=== PATIENT | male | born 1975 | race Asian ===

== ENCOUNTER 2016-09-08 09:49 | Inpatient (IN) | payer OTHER ==
[~2016-09-08] VITALS: Ht 154.9 cm; Wt 61.7 kg
[2016-09-08] MEDS ORDERED: SODIUM CHLORIDE 0.9% 1,000ML IVBOLUS ONE (10:30)
[2016-09-08] MEDS ORDERED: SODIUM CHLORIDE FLUSH 10ML SYR IVF ONE (10:30)
[2016-09-08 11:08] LABS: BLOOD UREA NITROGEN 17 mg/dL (7-18)
[2016-09-08 11:13] LABS: IS PT STATUS REG ER OR PRE ER? YES
[2016-09-08 11:24] LABS: ANISOCYTOSIS 1+; MICROCYTOSIS 2+; OVALOCYTES 1+; POIKILOCYTOSIS 1+
[2016-09-08 11:25] LABS: LARGE PLATELETS 1+
[2016-09-08 11:30] VITALS: BP 155/117
[2016-09-08] MEDS ORDERED: MORPHINE SULFATE 4 MG/ML, 1ML IVPush PRN (12:30)
[2016-09-08] MEDS ORDERED: BISACODYL 10 MG SUPP PR PRN (12:30)
[2016-09-08] MEDS ORDERED: ENALAPRILAT 1.25 MG/ML, 2ML IVPush PRN (12:30)
[2016-09-08] MEDS ORDERED: DOCUSATE 100 MG CAPSULE PO PRN (12:30)
[2016-09-08] MEDS ORDERED: HYDROcodone/APAP 5/325 TABLET PO PRN (12:30)
[2016-09-08] MEDS ORDERED: ONDANSETRON 2MG/ML, 2ML IVP PRN (12:30)
[2016-09-08] MEDS ORDERED: ACETAMINOPHEN 325 MG TABLET PO PRN (12:30)
[2016-09-08] MEDS ORDERED: POLYETHYLENE GLYCOL 17 GM PACKET PO PRN (12:30)
[2016-09-08 13:24] LABS: IS PT STATUS REG ER OR PRE ER? YES
[2016-09-08 13:30] VITALS: BP 155/117
[2016-09-08] MEDS: ENOXAPARIN 40 MG/0.4 ML SQ SCH (13:54)
[2016-09-08] MEDS: SODIUM CHLORIDE 0.9% 1,000 ML IV SCH ×2 (13:55→23:40)
[2016-09-08] MEDS ORDERED: CYANOCOBALAMIN 1,000 MCG/ML, 1ML IM ONE (14:30)
[2016-09-08 15:02] VITALS: BP 129/86
[2016-09-08 18:24] VITALS: BP 134/87
[2016-09-08 20:26] LABS: IS PT STATUS REG ER OR PRE ER? NO
[2016-09-09 01:10] VITALS: BP 152/97
[2016-09-09 06:24] LABS: BLOOD UREA NITROGEN 15 mg/dL (7-18)
[2016-09-09 07:31] VITALS: BP 163/99
[2016-09-09] MEDS ORDERED: REGADENOSON 0.4 MG/5 ML SYRINGE ONE (09:37)
[2016-09-09] MEDS: ENOXAPARIN 40 MG/0.4 ML SQ SCH (12:30)
[2016-09-09] MEDS ORDERED: CYAN10005 IM (14:09)
[2016-09-09] MEDS ORDERED: LISI-167 PO (14:09)
[2016-09-09 14:57] VITALS: BP 180/99
[2016-09-09] MEDS ORDERED: CYANOCOBALAMIN 1,000 MCG/ML, 1ML IM ONE (15:30)
== END 2016-09-09 17:00 | disposition home or self-care (01) | DRG 74 ==
LOC: ED 10:15 → EDIP 11:49 → 5SO 13:27
PROVIDERS: ADMIT Internal Medicine; ATTEND Internal Medicine
DX: G90.8 Other disorders of autonomic nervous system (principal); I16.9 Hypertensive crisis, unspecified; E86.9 Volume depletion, unspecified; E53.8 Deficiency of other specified B group vitamins; R00.0 Tachycardia, unspecified; R73.9 Hyperglycemia, unspecified; I11.9 Hypertensive heart disease without heart failure; Z82.49 Family history of ischemic heart disease and other diseases of the circulatory system
CPT/HCPCS: 36415; 70450; 71010; 78452; 80048; 82040; 82607; 82728; 82746; 83540; 83550; 84443; 84466; 84484; 85025; 85045; 85379; 93005; 93017; 93306; 93880; 96360; 96361; 99285; J1650; J2785; A9502; C9898; J3420; J7030